=== PATIENT | male | born 2000 | race Caucasian/White ===

== ENCOUNTER 2024-07-30 20:12 | Emergency (ER) | payer OTHER, SELFPAY ==
[2024-07-30 20:13] VITALS: BP 145/80; PULSE 97; RESP 16; TEMP 36.4; O2SAT 99; BMI 28.5
--- NOTE | 2024-07-30 22:49 | EX.ED.VISEXT ---
HPI History of Present Illness Chief Complaint: Bite Informant: patient Narrative Narrative: Patient states he was bitten by a dog. He did not see the dog coming. [place], and then behind that was a field, and he was at the edge of the field when the dog came from the field, apparently bit him in the right lower leg, and then ran back into the field. He is never seen the dog for, he has no idea if it belonged to someone, he is not 100% sure if it bit him or scratched him but he assumes that bit him, he did not see any part of the dog except for the back of it while was running away. He is concerned about rabies. He was wearing pants at the time and states it is weird, I have this scrape but my pants were never broken. ROS ROS ED Constitutional Constitutional ED: Denies chills or fever(s) Musculoskeletal Musculoskeletal: Reports extremity pain; Denies neck pain Integumentary Reports Abrasions; Denies rash or wounds Neurologic Neurologic: Denies paresthesias or weakness PFSH PFSH Home Medications ?Medication ?Instructions ?Recorded ?Last Taken ?Type NK 07/30/24 Unknown History Allergy/AdvReac Type Severity Reaction Status Date / Time Penicillins (PCN) Allergy PT UNSURE Verified 07/30/24 20:14 OF REACTION Surgical History (Updated 07/30/24 @ 20:14 by Damari Gaines) Hx of tonsillectomy Social History Smoking Status: Never smoker EXAM Physical Exam Const Vital Signs: 07/30/24 20:13 Temperature 97.6 F L Temperature Source Oral Pulse Rate 97 Respiratory Rate 16 Blood Pressure 145/80 H Blood Pressure Mean 101 Pulse Ox 99 Positive well nourished and well developed General Appearance ED: well developed and NAD Neck full ROM and supple Back/Spine normal ROM and normal to inspection Extremity full ROM Extremity Narrative: Abrasion without bleeding to the area of the right fibular head without bony tenderness or swelling. No sign of infection. Patient's pants are completely intact, which are the ones she was wearing when the incident occurred. Neuro oriented x3, no focal motor deficits and no sensory deficits noted Sensorium / Orientation: alert Psych mental status grossly normal and thought process normal Skin Skin Narrative: abrasion lateral aspect of the proximal right lower leg Rashes: no rashes MDM MDM MDM Narrative Medical decision making narrative: This is an abrasion there is nothing to repair I had nurses cleanse and dress it just in case, but this is a benign wound, and even if the dog had rabies which is very unusual in [place], and did in fact bite him, his pant leg was not penetrated, and therefore in my judgment he is not at risk for rabies here. He is reassured, and we discussed reasons to return. Discharge Plan Triage Chief Complaint: Bite ED Provider: Rodrigue Helton Dx/Rx/DC Orders Clinical Impression: Abrasion, right lower leg, initial encounter, Dog bite of right lower leg Instructions: ED Dog Bite Prescriptions: No Action NK Primary Care Provider: NOT,DEFINED Referrals: Doctor,Your [Non-Staff] - As Needed Print Language: Finnish Disposition Disposition: Home, Self Care
[2024-07-30 23:45] VITALS: BP 123/64; PULSE 70; RESP 16; TEMP 36.4; O2SAT 100
== END 2024-07-30 23:45 | disposition home or self-care (01) ==
PROVIDERS: Emergency Provider Emergency Medicine; PCP Nurse Practitioner Primary Care; Visit Provider Emergency Medicine
DX: S80.811A Abrasion, right lower leg, initial encounter (principal); W54.0XXA Bitten by dog, initial encounter
CPT/HCPCS: 99282